=== PATIENT | male | born 1980 | race Caucasian/White ===

== ENCOUNTER 2018-06-10 18:30 | Emergency (ER) | payer OTHER ==
[~2018-06-10] VITALS: Ht 170.2 cm; Wt 150.1 kg
[2018-06-10 18:58] VITALS: BP 184/105; Ht 170.2 cm; Wt 150.1 kg
== END 2018-06-10 20:03 | disposition home or self-care (01) ==
LOC: ED 18:30
DX: J02.9 Acute pharyngitis, unspecified (principal); E66.9 Obesity, unspecified; M79.1 Myalgia; I10 Essential (primary) hypertension; E11.9 Type 2 diabetes mellitus without complications; Z68.43 Body mass index [BMI] 50.0-59.9, adult
CPT/HCPCS: J0696; J7512